=== PATIENT | male | born 1990 ===

== ENCOUNTER 2018-06-23 09:21 | Outpatient (CLI) | payer OTHER ==
[~2018-06-23] VITALS: Ht 170.2 cm; Wt 70.3 kg
== END 2018-06-23 09:40 | disposition home or self-care (01) ==
LOC: OFIC 805 09:21
DX: H61.23 Impacted cerumen, bilateral (principal); H90.3 Sensorineural hearing loss, bilateral

== ENCOUNTER 2021-10-07 08:45 | Outpatient (CLI) | payer OTHER | END 2021-10-07 08:57 | disposition home or self-care (01) | LOC: LAB 08:45 | PROVIDERS: ATTEND Obstetrics & Gynecology | DX: Z20.818 Contact with and (suspected) exposure to other bacterial communicable diseases (principal); Z20.828 Contact with and (suspected) exposure to other viral communicable diseases ==